=== PATIENT | female | born 1980 | race Caucasian/White ===

== ENCOUNTER 2016-12-27 13:13 | Emergency (ER) | payer BC ==
[~2016-12-27] VITALS: Ht 162.6 cm; Wt 71.7 kg
[2016-12-27 14:22] LABS: EOSINOPHIL (%) 2.3 % (0-5); EOSINOPHIL COUNT 0.2 K/uL (0-0.3); HEMATOCRIT 36.9 % (36.0-46.0); IMMATURE GRANULOCYTE (%) 0.2 % (0.0-0.7); IMMATURE GRANULOCYTE COUNT 0.1 K/uL; LYMPHOCYTE COUNT 1.6 K/uL (1.0-2.8); MCH 30.1 PG (29.0-34.0); MCHC 34.7 G/DL (30.0-36.0); MCV 86.8 FL (83-99); MEAN PLAT.VOLUME 9.4 uM^3 (9.5-12.4); MONOCYTE (%) 6.1 % (3-12); MONOCYTE COUNT 0.4 K/uL (0-0.8); NEUTROPHIL COUNT 4.3 K/uL (1.8-6.4); PLATELET COUNT 297 K/uL (156-360); RBC DIS.WIDTH-CV 12.2 % (11.8-14.6); RBC DIS.WIDTH-SD 38.2 % (39-53); RED BLOOD COUNT 4.25 M/uL (3.80-5.20); WHITE BLOOD COUNT 6.4 K/uL (4.1-10.2)
[2016-12-27 14:31] LABS: CHLORIDE 107 mEq/L (99-109); POTASSIUM 3.9 mEq/L (3.7-5.4); SODIUM 139 mEq/L (136-147)
[2016-12-27 14:33] LABS: GLUCOSE 89 mg/dL (70-99)
[2016-12-27 14:34] LABS: ANION GAP 8 MEQ/L (2-14)
[2016-12-27 14:36] LABS: GFR ESTIMATE (CALCULATED) > 59 mL/min/
[2016-12-27 14:37] LABS: UREA NITROGEN (BUN) 11 mg/dL (9-23)
[2016-12-27] MEDS ORDERED: BUSPAR15 MG PO (14:44)
[2016-12-27 15:06] LABS: INTERNAL CONTROL VALID? YES; MONOSPOT (MONONUCLEOSIS SEROL) NEGATIVE
[2016-12-27 17:07] VITALS: BP 122/70
== END 2016-12-27 17:08 | disposition home or self-care (01) ==
LOC: EME 13:13
PROVIDERS: Emergency Medicine
DX: B34.9 Viral infection, unspecified (principal); R50.9 Fever, unspecified
CPT/HCPCS: 71020; 80048; 85025; 86308; 99281; 99284